=== PATIENT | female | born 1990 | race African-American/Black ===

== ENCOUNTER 2017-05-18 15:44 | Emergency (ER) | payer MEDICAID, OTHER ==
[~2017-05-18] VITALS: Ht 172.7 cm; Wt 81.6 kg
[~2017-05-18 15:44] MED LIST: ACET-704 PO; IBUP-1060 PO; NITR100C62 PO; PNV1TABL25 PO
[2017-05-18] MEDS ORDERED: IV DEXTROSE 5% - 0.9 % NACL 1,000 ML IV ONE (17:00)
--- NOTE | 2017-05-18 17:03 | PHYS DOC ---
Past Medical History Past Medical History: Asthma Alcohol Use: None Adult General Chief Complaint Chief Complaint: ASTHMA HPI HPI Patient is a 27 year old female presents to the emergency department with complaints of nausea and vomiting in the morning. She states she is approximately 12 weeks gestation. She is a 5 para 4. She denies abdominal pain, urinary symptoms, vaginal discharge or bleeding. She denies pelvic pain. Review of Systems Review of Systems Constitutional: Denies fever or chills [] Eyes: Denies change in visual acuity, redness, or eye pain [] HENT: Denies nasal congestion or sore throat [] Respiratory: Denies cough or shortness of breath [] Cardiovascular: No additional information not addressed in HPI [] GI: Denies abdominal pain, complain of nausea and vomiting in the morning. : Denies dysuria or hematuria [] Musculoskeletal: Denies back pain or joint pain [] Integument: Denies rash or skin lesions [] Neurologic: Denies headache, focal weakness or sensory changes [] Endocrine: Denies polyuria or polydipsia [] Current Medications Current Medications Current Medications Medications (Trade) Dose Ordered Sig/Kamlesh Start Time Stop Time Status Last Admin Dose Admin Dextrose/Sodium Chloride 1,000 ml @ 0 mls/hr 1X ONCE 05/18/17 17:00 05/18/17 17:02 DC 05/18/17 17:52 1,000 MLS/HR Allergies Allergies Allergies Coded Allergies Type Severity Reaction Last Updated Verified latex Allergy Intermediate Itching 07/05/15 No Physical Exam Physical Exam Constitutional: Well developed, well nourished, no acute distress, non-toxic appearance. [] HENT: Normocephalic, atraumatic, bilateral external ears normal, mucous membranes dry, no oral exudates, nose normal. [] Eyes: PERRLA, EOMI, conjunctiva normal, no discharge. [] Neck: Normal range of motion, no tenderness, supple, no stridor. [] Cardiovascular:Heart rate regular rhythm, no murmur [] Lungs & Thorax: Bilateral breath sounds clear to auscultation [] Abdomen: Bowel sounds normal, soft, no tenderness, no masses, no pulsatile masses. [] Skin: Warm, dry, no erythema, no rash. [] Back: No tenderness, no CVA tenderness. [] Extremities: No tenderness, no cyanosis, no clubbing, ROM intact, no edema. [] Neurologic: Alert and oriented X 3, normal motor function, normal sensory function, no focal deficits noted. [] Psychologic: Affect normal, judgement normal, mood normal. [] Current Patient Data Vital Signs Vital Signs Date Time Temp Pulse Resp B/P (MAP) Pulse Ox O2 Delivery O2 Flow Rate FiO2 05/18/17 16:50 99.4 94 20 121/72 (88) 99 Room Air 99.4 Lab Values Laboratory Tests Test 05/18/17 16:40 05/18/17 16:47 Urine Collection Type Unknown Urine Color Yellow Urine Clarity Clear Urine pH 6.5 Urine Specific [place] >=1.030 Urine Protein Negative mg/dL (NEG-TRACE) Urine Glucose (UA) Negative mg/dL (NEG) Urine Ketones (Stick) Negative mg/dL (NEG) Urine Blood Negative (NEG) Urine Nitrite Negative (NEG) Urine Bilirubin Negative (NEG) Urine Urobilinogen Dipstick 2.0 mg/dL (0.2 mg/dL) Urine Leukocyte Esterase Moderate (NEG) Urine RBC 0 /HPF (0-2) Urine WBC 11-20 /HPF (0-4) Urine Squamous Epithelial Cells Mod /LPF Urine Bacteria Few /HPF (0-FEW) Urine Mucus Mod /LPF POC Urine HCG, Qualitative Hcg positive (Negative) EKG EKG [] Radiology/Procedures Radiology/Procedures [] Course & Med Decision Making Course & Med Decision Making Pertinent Labs and Imaging studies reviewed. (See chart for details) Patient had no complaints of nausea and no episodes of vomiting while in the emergency department. []Patient without ketones in urine, because no masses are dry. She was given 1 L of D5NS in the emergency department and "feels better". Patient is not given antiemetics IV as these are not currently recommended in . She was discharged home with Diclegis. Patient does have urinary tract infection with 11-20 WBCs per high-power field on microscopic. She'll be discharged home with Macrobid. She is to follow-up with her primary OB in 2-3 days. Sooner proms rise. Return to the emergency department his symptoms or concerns worsening current condition. Dragon Disclaimer Dragon Disclaimer This electronic medical record was generated, in whole or in part, using a voice recognition dictation system. Departure Departure Impression: Primary Impression: Hyperemesis gravidarum Additional Impression: Urinary tract infection affecting , antepartum Disposition: 01 HOME, SELF-CARE Condition: STABLE Referrals: JENNY MENCHACA MD (PCP) Patient Instructions: Diet - Hyperemesis Gravidarum, Hyperemesis Gravidarum, Urinary Tract Infection Scripts Doxylamine/Pyridoxine Hcl (DICLEGIS DR 10-10 MG TABLET) 1 Each Tablet.dr 1 EACH PO TID Y for NAUSEA, #15 TAB.SR Prov: BORIS TOVAR APRN 05/18/17 Nitrofurantoin Monohyd/M-Cryst (MACROBID 100 MG CAPSULE) 100 Mg Capsule 1 CAP PO BID, #14 CAP Prov: BORIS TOVAR APRN 05/18/17 Problem Qualifiers BORIS TOVAR APRN May 18, 2017 17:03
[2017-05-18 17:16] LABS: BILIRUBIN,URINE NEGATIVE (NEG); GLUCOSE,URINE NEGATIVE (NEG); NITRITE,URINE NEGATIVE (NEG); PH,URINE 6.5; PROTEIN,URINE NEGATIVE (NEG-TRACE)
[2017-05-18 17:42] LABS: BACTERIA,URINE FEW /HPF (0-FEW); RBC,URINE 0 /HPF (0-2); SQUAMOUS EPITHELIAL CELL,UR MOD /LPF
[2017-05-18] MEDS ORDERED: NITR100C62 PO ×2 (17:49)
[2017-05-18] MEDS ORDERED: DOXY1TAB3 PO ×2 (17:49)
[2017-05-18 19:30] VITALS: BP 101/57
== END 2017-05-18 19:46 | disposition home or self-care (01) ==
LOC: ER 15:44
DX: O21.0 Mild hyperemesis gravidarum (principal); O23.41 Unspecified infection of urinary tract in pregnancy, first trimester; O99.511 Diseases of the respiratory system complicating pregnancy, first trimester; J45.909 Unspecified asthma, uncomplicated; Z3A.12 12 weeks gestation of pregnancy; Z91.040 Latex allergy status
CPT/HCPCS: 81001; 81025; 96360; 96361; 99285; J7042; 99284-25

== ENCOUNTER 2017-05-30 16:58 | Emergency (ER) | payer MEDICAID ==
[~2017-05-30] VITALS: Ht 172.7 cm; Wt 81.6 kg
[~2017-05-30 16:58] MED LIST changes: +DOXY1TAB3 PO
[2017-05-30] MEDS ORDERED: IV NORMAL SALINE 1000ML BAG 1,000 ML IV SCH (17:12)
[2017-05-30] MEDS ORDERED: 0.9 % SODIUM CHLORIDE 10 ML DISP.SYRIN. IV PRN (17:15)
[2017-05-30] MEDS ORDERED: ONDANSETRON PF 4 MG/2 ML VIAL. IV ONE (17:15)
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
[2017-05-30 17:35] LABS: BILIRUBIN,URINE NEGATIVE (NEG); GLUCOSE,URINE NEGATIVE (NEG); NITRITE,URINE POSITIVE (NEG); PH,URINE 6.5; PROTEIN,URINE NEGATIVE (NEG-TRACE)
[2017-05-30 17:44] LABS: BACTERIA,URINE MODERATE /HPF (0-FEW); RBC,URINE OCC /HPF (0-2); SQUAMOUS EPITHELIAL CELL,UR MOD /LPF; WBC,URINE 20-40 /HPF (0-4)
[2017-05-30 18:05] LABS: BASO % 0 % (0-3); EOS % 1 % (0-3); HEMATOCRIT 27.8 % (36.0-47.0); HEMOGLOBIN 8.4 g/dL (12.0-15.5); LYMPH # 2.2 x10^3/uL (1.0-4.8); LYMPH % 23 % (24-48); MEAN CORPUSCULAR HEMOGLOBIN 19 pg (25-35); MEAN CORPUSCULAR HGB CONC 30 g/dL (31-37); MEAN CORPUSCULAR VOLUME 64 fL (79-100); MONO % 6 % (0-9); NEUT % 70 % (31-73); PLATELET COUNT 240 x10^3/uL (140-400); RED BLOOD COUNT 4.36 x10^6/uL (3.50-5.40); RED CELL DISTRIBUTION WIDTH 18.9 % (11.5-14.5); WHITE BLOOD COUNT 9.6 x10^3/uL (4.0-11.0)
[2017-05-30 18:18] LABS: ANION GAP 12 (6-14); BLOOD UREA NITROGEN 11 mg/dL (7-20); CALCIUM 8.5 mg/dL (8.5-10.1); CARBON DIOXIDE 22 mmol/L (21-32); CHLORIDE 103 mmol/L (98-107); CREATININE 0.6 mg/dL (0.6-1.0); GLUCOSE 105 mg/dL (70-99); POTASSIUM 3.3 mmol/L (3.5-5.1); SODIUM 137 mmol/L (136-145)
[2017-05-30 18:25] LABS: ALBUMIN 2.8 g/dL (3.4-5.0); ALK PHOS 44 U/L (46-116); ALT (SGPT) 10 U/L (14-59); AST (SGOT) 11 U/L (15-37); DIRECT BILIRUBIN < 0.1 mg/dL (0.0-0.2); TOTAL BILIRUBIN 0.2 mg/dL (0.2-1.0); TOTAL PROTEIN 7.2 g/dL (6.4-8.2)
--- NOTE | 2017-05-30 19:03 | RAD ---
Early OB ultrasound History: Pelvic pain after fall Comparison: None. Technique: Transabdominal imaging was performed. Findings: Uterus measures 14.5 cm in length. Single live intrauterine is identified with gestational sac and fetus seen. Average ultrasound age is 13 weeks 0 days. Estimated delivery is December 05, 2017. Abdominal circumference is 6.61 cm corresponding to 13 weeks 2 days. [place]-rump length is 6.32 cm corresponding to 12 weeks 5 days. heart rate is 155 bpm. Placenta is posterior in implantation. No retroplacental hemorrhage is identified. Neither ovary is seen. Impression: 1. Single live intrauterine . Average ultrasound age is 13 weeks 0 days. Estimated date of delivery is December 05, 2017. Electronically signed by: Wily Scott MD (05/30/2017 7:00 PM) [facility]
[2017-05-30 19:08] LABS: ANISOCYTOSIS SLIGHT; HYPOCHROMIA MARKED; MICROCYTOSIS MARKED; PLT ESTIMATE ADEQUATE (ADEQUATE); POIKILOCYTOSIS SLIGHT; POLYCHROMASIA SLIGHT; TEAR DROP CELLS OCC
[2017-05-30 19:09] LABS: OVALOCYTES MOD
[2017-05-30 19:15] VITALS: BP 111/85
[2017-05-30] MEDS ORDERED: ACET325T9 PO (19:24)
[2017-05-30] MEDS ORDERED: ONDA4TAB10 PO (19:24)
== END 2017-05-30 19:45 | disposition home or self-care (01) ==
LOC: ER 16:58
DX: O20.0 Threatened abortion (principal); Z3A.13 13 weeks gestation of pregnancy; Z91.040 Latex allergy status; O99.511 Diseases of the respiratory system complicating pregnancy, first trimester; J45.909 Unspecified asthma, uncomplicated
CPT/HCPCS: 36415; 76801; 80048; 80076; 81001; 81025; 83690; 84702; 85025; 86900; 86901; 87086; 87491; 87591; 96361; 96374; 99285; J2405; J7030; Q0111

== ENCOUNTER 2017-06-22 14:02 | Emergency (ER) | payer MEDICAID ==
[~2017-06-22] VITALS: Ht 170.2 cm; Wt 86.2 kg
[~2017-06-22 14:02] MED LIST changes: +ACET325T9 PO; +ONDA4TAB10 PO
[2017-06-22] MEDS ORDERED: ONDANSETRON PF 4 MG/2 ML VIAL. IV ONE (14:30)
[2017-06-22] MEDS ORDERED: IV NORMAL SALINE 1000ML BAG 1,000 ML IV ONE (14:30)
--- NOTE | 2017-06-22 14:37 | PHYS DOC ---
Past Medical History Past Medical History: Asthma Past Surgical History: Other Additional Past Surgical Histo: LEFT ANKLE, L hand Alcohol Use: None Drug Use: None Adult General Chief Complaint Chief Complaint: NAUSEA/VOMITING/DIARRHA HPI HPI Patient is a 27 year old female brought in by EMS for evaluation of nausea vomiting cough congestion runny nose generalized malaise fatigue and body aches. Of pain approximate [address] Carmona. Vaginal discharge dysuria hematuria or diarrhea. She has not tried anything for her symptoms that have been going on for approximately 4 days. Not had a flu vaccine. She is in no obvious distress with normal vital signs. Review of Systems Review of Systems Constitutional: + fever, chills [] Eyes: Denies change in visual acuity, redness, or eye pain [] HENT: + nasal congestion, sore throat [] Respiratory: + cough. No shortness of breath [] Cardiovascular: No additional information not addressed in HPI [] GI: Denies abdominal pain. + nausea, vomiting. No bloody stools or diarrhea [] : Denies dysuria or hematuria [] Musculoskeletal: Denies back pain or joint pain [] Integument: Denies rash or skin lesions [] Neurologic: Denies headache, focal weakness or sensory changes [] All other systems were reviewed and found to be within normal limits, except as documented in this note. Current Medications Current Medications Current Medications Medications (Trade) Dose Ordered Sig/Kamlesh Start Time Stop Time Status Last Admin Dose Admin Ondansetron HCl (Zofran) 8 mg 1X ONCE 06/22/17 14:30 06/22/17 14:31 DC Sodium Chloride 1,000 ml @ 1,000 mls/hr 1X ONCE 06/22/17 14:30 06/22/17 15:29 Allergies Allergies Allergies Coded Allergies Type Severity Reaction Last Updated Verified latex Allergy Intermediate Itching 07/05/15 No Physical Exam Physical Exam Constitutional: Well developed, well nourished, no acute distress, non-toxic appearance. [] HENT: Normocephalic, atraumatic, bilateral external ears normal, oropharynx moist, no oral exudates, nose with boggy turbinates. [] Eyes: PERRLA, EOMI, conjunctiva normal, no discharge. [] Neck: Normal range of motion, no tenderness, supple, no stridor. [] Cardiovascular:Heart rate regular rhythm, no murmur [] Lungs & Thorax: Bilateral breath sounds clear to auscultation [] Abdomen: Bowel sounds normal, soft, no tenderness, no masses, no pulsatile masses. [] Skin: Warm, dry, no erythema, no rash. [] Back: No tenderness, no CVA tenderness. [] Extremities: No tenderness, no cyanosis, no clubbing, ROM intact, no edema. [] Neurologic: Alert and oriented X 3, normal motor function, normal sensory function, no focal deficits noted. [] Current Patient Data Vital Signs Vital Signs Date Time Temp Pulse Resp B/P (MAP) Pulse Ox O2 Delivery O2 Flow Rate FiO2 06/22/17 14:13 98.7 110 16 142/70 (94) 99 Room Air 98.7 EKG EKG [] Radiology/Procedures Radiology/Procedures EXAM: Chest, single view. HISTORY: Cough. COMPARISON: None. FINDINGS: A frontal view of the chest is obtained. There is no infiltrate, effusion or pneumothorax. The heart is normal in size. IMPRESSION: No acute pulmonary finding. DICTATED and SIGNED BY: LARON ANAYA MD DATE: 06/22/17 1450 Impressions: BSUS SHOWED IUP WITH + FHT AT 152 AND NORMAL MOVEMENT AND FLUID Course & Med Decision Making Course & Med Decision Making Labs and imaging pending at this time so I will transfer care to Dr. Zheng at 1500 and have him disposition the patient appropriately. Likely viral syndrome with normal vital signs that she will likely be able to go home. Dragon Disclaimer Dragon Disclaimer This electronic medical record was generated, in whole or in part, using a voice recognition dictation system. Departure Departure Impression: Primary Impression: Viral syndrome Additional Impression: Nausea & vomiting Referrals: NO PCP (PCP) Problem Qualifiers MARK PISANO DO Jun 22, 2017 14:37
--- NOTE | 2017-06-22 14:55 | RAD ---
EXAM: Chest, single view. HISTORY: Cough. COMPARISON: None. FINDINGS: A frontal view of the chest is obtained. There is no infiltrate, effusion or pneumothorax. The heart is normal in size. IMPRESSION: No acute pulmonary finding.
[2017-06-22 15:04] LABS: BILIRUBIN,URINE SMALL (NEG); GLUCOSE,URINE NEGATIVE (NEG); NITRITE,URINE NEGATIVE (NEG); PH,URINE 6.5; PROTEIN,URINE NEGATIVE (NEG-TRACE)
[2017-06-22 15:06] LABS: BACTERIA,URINE MODERATE /HPF (0-FEW); RBC,URINE 0 /HPF (0-2); SQUAMOUS EPITHELIAL CELL,UR MOD /LPF; WBC,URINE >40 /HPF (0-4)
[2017-06-22 15:07] LABS: BARBITURATES NEG (NEG); BENZODIAZEPINES NEG (NEG); CANNABINOIDS NEG (NEG); COCAINE NEG (NEG); METHADONE NEG (NEG); OPIATES NEG (NEG); PHENCYCLIDINE NEG (NEG)
[2017-06-22 15:09] LABS: OBC FLU VALID
[2017-06-22 15:14] LABS: BASO # 0.1 x10^3/uL (0.0-0.2); BASO % 1 % (0-3); EOS % 1 % (0-3); HEMATOCRIT 30.8 % (36.0-47.0); HEMOGLOBIN 9.2 g/dL (12.0-15.5); LYMPH # 1.3 x10^3/uL (1.0-4.8); LYMPH % 10 % (24-48); MEAN CORPUSCULAR HEMOGLOBIN 19 pg (25-35); MEAN CORPUSCULAR HGB CONC 30 g/dL (31-37); MEAN CORPUSCULAR VOLUME 64 fL (79-100); MONO % 5 % (0-9); NEUT % 83 % (31-73); PLATELET COUNT 208 x10^3/uL (140-400); RED BLOOD COUNT 4.82 x10^6/uL (3.50-5.40); RED CELL DISTRIBUTION WIDTH 19.7 % (11.5-14.5); WHITE BLOOD COUNT 13.5 x10^3/uL (4.0-11.0)
[2017-06-22 15:27] LABS: CALCIUM 9.4 mg/dL (8.5-10.1); CREATININE 0.9 mg/dL (0.6-1.0); GFR 90.2; POTASSIUM 3.3 mmol/L (3.5-5.1)
[2017-06-22 15:32] LABS: ALBUMIN 3.1 g/dL (3.4-5.0); ALBUMIN/GLOBULIN RATIO 0.6 (1.0-1.7); MAGNESIUM 1.8 mg/dL (1.8-2.4); TOTAL BILIRUBIN 0.3 mg/dL (0.2-1.0)
[2017-06-22 15:45] LABS: HYPOCHROMIA MARKED; PLT ESTIMATE ADEQUATE (ADEQUATE); POIKILOCYTOSIS SLIGHT
[2017-06-22 15:46] LABS: ANISOCYTOSIS SLIGHT; MICROCYTOSIS MARKED; OVALOCYTES FEW; POLYCHROMASIA SLIGHT; TEAR DROP CELLS OCC
[2017-06-22] MEDS ORDERED: IV DEXTROSE 5% - 0.9 % NACL 500 ML IV ONE (16:00)
[2017-06-22 16:53] VITALS: BP 122/66
[2017-06-23 08:16] LABS: NEGATIVE OBC STREP NEG; POSITIVE OBC STREP POS
== END 2017-06-22 17:26 | disposition home or self-care (01) ==
LOC: ER 14:02
DX: O98.512 Other viral diseases complicating pregnancy, second trimester (principal); B34.9 Viral infection, unspecified; O99.512 Diseases of the respiratory system complicating pregnancy, second trimester; J45.909 Unspecified asthma, uncomplicated; Z91.040 Latex allergy status; Z3A.17 17 weeks gestation of pregnancy
CPT/HCPCS: 36415; 71010; 80053; 80307; 81001; 83690; 83735; 85025; 87070; 87086; 87804; 87880; 96365; 96367; 96375; 99285; G0480; J0690; J2405; J7030; J7042; G0479

== ENCOUNTER 2017-07-03 02:29 | Emergency (ER) | payer MEDICAID ==
[2017-07-03 02:55] LABS: BILIRUBIN,URINE NEGATIVE (NEG); GLUCOSE,URINE NEGATIVE (NEG); NITRITE,URINE NEGATIVE (NEG); PH,URINE 6.5; PROTEIN,URINE NEGATIVE (NEG-TRACE)
--- NOTE | 2017-07-03 03:03 | PHYS DOC ---
Past Medical History Past Medical History: Asthma Past Surgical History: Other Additional Past Surgical Histo: LEFT ANKLE, L hand Additional Information: non smoker Alcohol Use: None Drug Use: None Adult General Chief Complaint Chief Complaint: FLANK PAIN HPI HPI Patient is a 27 year old female who presents with cough. SHe is 19 weeks (EDC 11/30/16) who has been [place] [facility] [place] [facility] [place] and has her next appt 07/12/17. SHe has been coughing and has had sinus congestion for > 1 week. No fever. SHe is coughing "until I throw up." No diarrhea. No abdominal pain; no leak of fluid; no vaginal bleeding. Denies any fever. NO Recent travel. No chest pain or difficulty breathing. Review of Systems Review of Systems Constitutional: Denies fever or chills Eyes: Denies change in visual acuity, redness, or eye pain HENT: POS nasal congestion and sore throat Respiratory: POS cough but no shortness of breath Cardiovascular: No chest pain GI: Denies abdominal pain, nausea, vomiting, bloody stools or diarrhea; . : Denies dysuria or hematuria Musculoskeletal: Denies back pain or joint pain Integument: Denies rash or skin lesions Neurologic: Denies headache, focal weakness or sensory changes Endocrine: Denies polyuria or polydipsia All other systems were reviewed and found to be within normal limits, except as documented in this note. Allergies Allergies Allergies Coded Allergies Type Severity Reaction Last Updated Verified latex Allergy Intermediate Itching 07/05/15 No Physical Exam Physical Exam Constitutional: Well developed, well nourished, no acute distress, non-toxic appearance. HENT: Normocephalic, atraumatic, bilateral external ears normal, oropharynx moist, no oral exudates, nose normal. Eyes: PERRLA, EOMI, conjunctiva normal, no discharge. Neck: Normal range of motion, no tenderness, supple, no stridor. Cardiovascular:Heart rate regular rhythm, no murmur Lungs & Thorax: Bilateral breath sounds clear to auscultation Abdomen: Bowel sounds normal, soft, no tenderness, no masses, no pulsatile masses. Gravid. Skin: Warm, dry, no erythema, no rash. Back: No tenderness, no CVA tenderness. Extremities: No tenderness, no cyanosis, no clubbing, ROM intact, no edema. Neurologic: Alert and oriented X 3, normal motor function, normal sensory function, no focal deficits noted. Psychologic: Affect normal, judgement normal, mood normal. Current Patient Data Lab Values Laboratory Tests Test 07/03/17 02:40 Urine Collection Type Unknown Urine Color Yellow Urine Clarity Clear Urine pH 6.5 Urine Specific [place] 1.020 Urine Protein Negative mg/dL (NEG-TRACE) Urine Glucose (UA) Negative mg/dL (NEG) Urine Ketones (Stick) Negative mg/dL (NEG) Urine Blood Negative (NEG) Urine Nitrite Negative (NEG) Urine Bilirubin Negative (NEG) Urine Urobilinogen Dipstick 1.0 mg/dL (0.2 mg/dL) Urine Leukocyte Esterase Small (NEG) Urine RBC 0 /HPF (0-2) Urine WBC 5-10 /HPF (0-4) Urine Squamous Epithelial Cells Mod /LPF Urine Bacteria Few /HPF (0-FEW) Urine Mucus Mod /LPF Course & Med Decision Making Course & Med Decision Making Evaluated patient. heart tones obtained at 157. She is having post tussive emesis. No GI involvement. UA contaminated. She is to follow up with OB as scheduled. She has a viral URI and does not meet criteria for antibiotic use. I have spoken with the patient and/or caregivers. I have explained the patient' s condition, diagnosis and treatment plan based on the information available to me at this time. I have answered the patient's and/or caregiver's questions and addressed any concerns. The patient and/or caregivers have as good an understanding of the patient's diagnosis, condition and treatment plan as can be expected at this point. The patient's condition is stable and appropriate for discharge from the emergency department. The patient will pursue further outpatient evaluation with the primary care physician or other designated or consulting physician as outlined in the discharge instructions. The patient and/or caregivers are agreeable to this plan of care and follow-up instructions have been explained in detail. The patient and/or caregivers have received these instructions in written format and have expressed an understanding of the discharge instructions. The patient and/or caregivers are aware that any significant change in condition or worsening of symptoms should prompt an immediate return to this or the closest emergency department or a call to 911. Jermaine Disclaimer Dragon Disclaimer This electronic medical record was generated, in whole or in part, using a voice recognition dictation system. Departure Departure Impression: Primary Impression: Viral upper respiratory illness Additional Impressions: 19 weeks gestation of Cough Disposition: HOME, SELF-CARE Condition: IMPROVED Referrals: NO PCP (PCP) Patient Instructions: Cough, Adult, Upper Respiratory Infection, Adult Additional Instructions: YOU NEED TO SEE YOUR OB AT [facility] DIRECTED. IF YOU ARE HAVING INCREASED SYMPTOMS YOU NEED TO SEE THEM JENNY. YOUR HEART TONES WERE NORMAL HERE. Problem Qualifiers LILIANA OWUSU MD Jul 03, 2017 03:03
[2017-07-03 03:09] LABS: BACTERIA,URINE FEW /HPF (0-FEW); RBC,URINE 0 /HPF (0-2); SQUAMOUS EPITHELIAL CELL,UR MOD /LPF
[2017-07-03 03:25] VITALS: BP 106/63
== END 2017-07-03 03:25 | disposition home or self-care (01) ==
LOC: ER 02:29
DX: O99.512 Diseases of the respiratory system complicating pregnancy, second trimester (principal); J06.9 Acute upper respiratory infection, unspecified; B97.89 Other viral agents as the cause of diseases classified elsewhere; J45.909 Unspecified asthma, uncomplicated; Z3A.19 19 weeks gestation of pregnancy; Z91.040 Latex allergy status
CPT/HCPCS: 81001; 87086; 99284

== ENCOUNTER 2017-07-25 19:14 | Observation (INO) | payer MEDICAID ==
[2017-07-25] MEDS ORDERED: IV RINGERS,LACTATED 1000ML 1,000 ML IV SCH (19:24)
[2017-07-25 19:43] LABS: BILIRUBIN,URINE NEGATIVE (NEG); GLUCOSE,URINE NEGATIVE (NEG); NITRITE,URINE NEGATIVE (NEG); PROTEIN,URINE NEGATIVE (NEG-TRACE)
[2017-07-25 19:45] LABS: BARBITURATES NEG (NEG); BENZODIAZEPINES NEG (NEG); CANNABINOIDS NEG (NEG); COCAINE NEG (NEG); METHADONE NEG (NEG); OPIATES NEG (NEG); PHENCYCLIDINE NEG (NEG)
[2017-07-25 19:49] LABS: BACTERIA,URINE FEW /HPF (0-FEW); RBC,URINE 0 /HPF (0-2); SQUAMOUS EPITHELIAL CELL,UR MANY /LPF
== END 2017-07-25 20:47 | disposition home or self-care (01) ==
LOC: 3 SO LND 19:14
PROVIDERS: ADMIT Specialist; ATTEND Specialist
DX: O26.892 Other specified pregnancy related conditions, second trimester (principal); R51 Headache; R10.30 Lower abdominal pain, unspecified; R35.0 Frequency of micturition; Z3A.21 21 weeks gestation of pregnancy
CPT/HCPCS: 80307; 81001; 87086; G0378; G0379; G0479

== ENCOUNTER 2017-09-18 19:06 | Observation (INO) | payer MEDICAID ==
[2017-09-18] MEDS ORDERED: IV RINGERS,LACTATED 1000ML 1,000 ML IV ×2 (19:14)
[2017-09-18 20:15] LABS: BILIRUBIN,URINE NEGATIVE (NEG); CLARITY,URINE CLEAR; COLOR,URINE YELLOW; GLUCOSE,URINE NEGATIVE (NEG); NITRITE,URINE NEGATIVE (NEG); PH,URINE 6.5; PROTEIN,URINE NEGATIVE (NEG-TRACE)
[2017-09-18 20:22] LABS: BARBITURATES POS (NEG); BENZODIAZEPINES NEG (NEG); CANNABINOIDS NEG (NEG); COCAINE NEG (NEG); METHADONE NEG (NEG); OPIATES NEG (NEG); PHENCYCLIDINE NEG (NEG)
[2017-09-18 20:23] LABS: AMPHETAMINE/METHAMPHETAMINE NEG (NEG); ETHANOL, URINE NEG (NEG)
[2017-09-18 20:37] LABS: BACTERIA,URINE MANY /HPF (0-FEW); HYALINE CASTS, URINE OCCASIONAL /HPF; RBC,URINE 0 /HPF (0-2); SQUAMOUS EPITHELIAL CELL,UR MANY /LPF
[2017-09-18] MEDS: IV DEXTROSE 5%-LACT RINGERS 1,000 ML IV ×2 (21:10)
[2017-09-18] MEDS: hydrOXYzine PAMOATE 25 MG CAPSULE PO ×2 (23:14)
== END 2017-09-18 23:25 | disposition home or self-care (01) ==
LOC: 3 SO LND 19:06
DX: O26.893 Other specified pregnancy related conditions, third trimester (principal); R10.9 Unspecified abdominal pain; G43.909 Migraine, unspecified, not intractable, without status migrainosus; Z3A.29 29 weeks gestation of pregnancy
CPT/HCPCS: 80307; 81001; 87086; 96360; G0378; G0379; Q0177

== ENCOUNTER 2017-09-26 20:10 | Observation (INO) | payer MEDICAID ==
[2017-09-26 20:45] LABS: BILIRUBIN,URINE NEGATIVE (NEG); CLARITY,URINE CLEAR; COLOR,URINE YELLOW; GLUCOSE,URINE NEGATIVE (NEG); NITRITE,URINE NEGATIVE (NEG); PROTEIN,URINE NEGATIVE (NEG-TRACE)
[2017-09-26 20:49] LABS: BARBITURATES POS (NEG); BENZODIAZEPINES NEG (NEG); CANNABINOIDS NEG (NEG); COCAINE NEG (NEG); METHADONE NEG (NEG); OPIATES NEG (NEG); PHENCYCLIDINE NEG (NEG)
[2017-09-26 20:51] LABS: AMPHETAMINE/METHAMPHETAMINE NEG (NEG); ETHANOL, URINE NEG (NEG)
[2017-09-26 21:05] LABS: BACTERIA,URINE MODERATE /HPF (0-FEW); RBC,URINE 0 /HPF (0-2); SQUAMOUS EPITHELIAL CELL,UR OCC /LPF; WBC,URINE OCC /HPF (0-4)
== END 2017-09-26 22:00 | disposition home or self-care (01) ==
LOC: 3 SO LND 20:10
DX: O26.893 Other specified pregnancy related conditions, third trimester (principal); R10.9 Unspecified abdominal pain; Z3A.30 30 weeks gestation of pregnancy
CPT/HCPCS: 59025; 80307; 81001; 87086; G0378; G0379

== ENCOUNTER 2017-10-20 22:53 | Observation (INO) | payer MEDICAID ==
[2017-10-21] MEDS ORDERED: ACETAMINOPHEN 325 MG TABLET. PO
[2017-10-21] MEDS: IV RINGERS,LACTATED 1000ML 1,000 ML IV ×3 (00:05→05:29)
[2017-10-21] MEDS: hydrOXYzine PAMOATE 25 MG CAPSULE PO (01:20)
[2017-10-21] MEDS: NIFEdipine 10 MG CAPSULE PO (04:25)
[2017-10-21] MEDS: 0.9 % SODIUM CHLORIDE 10 ML DISP.SYRIN. IV (09:34)
== END 2017-10-21 12:38 | disposition home or self-care (01) ==
LOC: 3 SO LND 22:53
DX: O36.8130 Decreased fetal movements, third trimester, not applicable or unspecified (principal); Z3A.34 34 weeks gestation of pregnancy
CPT/HCPCS: 59025; 76819; 96360; 96361; G0378; G0379; J7120; Q0177

== ENCOUNTER 2017-11-15 04:10 | Inpatient (IN) | payer OTHER, MEDICAID ==
[2017-11-15 04:32] LABS: BILIRUBIN,URINE NEGATIVE (NEG); CLARITY,URINE CLOUDY; COLOR,URINE YELLOW; GLUCOSE,URINE NEGATIVE (NEG); NITRITE,URINE NEGATIVE (NEG); PROTEIN,URINE NEGATIVE (NEG-TRACE)
[2017-11-15 04:37] LABS: BACTERIA,URINE MANY /HPF (0-FEW); RBC,URINE 0 /HPF (0-2); SQUAMOUS EPITHELIAL CELL,UR FEW /LPF
[2017-11-15 04:39] LABS: BARBITURATES NEG (NEG); BENZODIAZEPINES NEG (NEG); CANNABINOIDS NEG (NEG); COCAINE NEG (NEG); METHADONE NEG (NEG); OPIATES NEG (NEG); PHENCYCLIDINE NEG (NEG)
[2017-11-15 04:40] LABS: AMPHETAMINE/METHAMPHETAMINE NEG (NEG); ETHANOL, URINE NEG (NEG)
[2017-11-15] MEDS: IV RINGERS,LACTATED 1000ML 1,000 ML IV ×3 (05:14→20:50)
[2017-11-15] MEDS ORDERED: L&D EPIDURAL CASSETTE 100 ML EP (05:30)
[2017-11-15] MEDS: ACETAMINOPHEN 500 MG TABLET PO (08:45)
[2017-11-15] MEDS ORDERED: L&D EPIDURAL SYRINGE 50 ML EP (10:00)
[2017-11-15] MEDS ORDERED: IV RINGERS,LACTATED 1000ML 1,000 ML IV ×2 (13:43→20:39)
[2017-11-15] MEDS ORDERED: TERBUTALINE 1 MG/ML VIAL. SQ (13:45)
[2017-11-15] MEDS ORDERED: OXYTOCIN 30 UNIT/500 ML PREMIX 500 ML IV (13:45)
[2017-11-15] MEDS ORDERED: MAG HYDROX/ALUMINUM HYD/SIMETH 30 ML ORAL.SUSP PO (13:45)
[2017-11-15] MEDS ORDERED: CITRIC ACID/SODIUM CITRATE 30 ML SOLUTION. PO (13:45)
[2017-11-15] MEDS ORDERED: LIDOCAINE 1% PF 30 ML VIAL. INJ (13:45)
[2017-11-15] MEDS ORDERED: BUTORPHANOL 2 MG/ML VIAL. IV ×2 (13:45)
[2017-11-15] MEDS ORDERED: fentaNYL PF VIAL 100 MCG/2 ML VIAL IV (13:45)
[2017-11-15] MEDS ORDERED: 0.9 % SODIUM CHLORIDE 10 ML DISP.SYRIN. IV (13:45)
[2017-11-15] MEDS ORDERED: AMPICILLIN SODIUM 2 GM in IV NORMAL SALINE 100ML 100 ML IV (13:45)
[2017-11-15] MEDS ORDERED: AMPICILLIN SODIUM 1 GM in IV NORMAL SALINE 50ML 50 ML IV (14:00)
[2017-11-15 15:15] LABS: HEMATOCRIT 25.5 % (36.0-47.0); HEMOGLOBIN 7.3 g/dL (12.0-15.5); MEAN CORPUSCULAR HEMOGLOBIN 17 pg (25-35); MEAN CORPUSCULAR HGB CONC 29 g/dL (31-37); MEAN CORPUSCULAR VOLUME 60 fL (79-100); PLATELET COUNT 170 x10^3/uL (140-400); RED BLOOD COUNT 4.21 x10^6/uL (3.50-5.40); RED CELL DISTRIBUTION WIDTH 20.2 % (11.5-14.5); WHITE BLOOD COUNT 10.9 x10^3/uL (4.0-11.0)
[2017-11-15] MEDS: AMPICILLIN SODIUM IV Push 2 GM VIAL. IVP (15:48)
[2017-11-15] MEDS: OXYTOCIN 30 UNIT/500 ML PREMIX 500 ML IV (16:08)
[2017-11-15] MEDS: AMPICILLIN SODIUM IV Push 1 GM VIAL. IVP (19:55)
[2017-11-15] MEDS ORDERED: ONDANSETRON PF 4 MG/2 ML VIAL. IV (20:00)
[2017-11-15] MEDS: miSOPROStol 200MCG TAB 200 MCG TABLET PR (20:50)
[2017-11-15] MEDS: METHYLERGONOVINE MALEATE 0.2 MG TABLET PO (23:17)
[2017-11-15] MEDS: IBUPROFEN 800 MG TABLET. PO (23:17)
[2017-11-16] MEDS ORDERED: MMR per PROTOCOL. MC (08:00)
[2017-11-16] MEDS ORDERED: ZOLPIDEM 5 MG TABLET. PO (08:00)
[2017-11-16] MEDS ORDERED: diphenhydrAMINE HCL 25 MG CAPSULE PO (08:00)
[2017-11-16] MEDS ORDERED: 0.9 % SODIUM CHLORIDE 10 ML DISP.SYRIN. IV (08:00)
[2017-11-16] MEDS ORDERED: BENZOCAINE 20% TOPICAL AEROSOL SPRAY 57GM CAN. TP (08:00)
[2017-11-16] MEDS ORDERED: ACETAMINOPHEN 325 MG TABLET. PO (08:00)
[2017-11-16] MEDS ORDERED: oxyCODONE/APAP 5/325 1 TAB TABLET PO (08:00)
[2017-11-16] MEDS ORDERED: HYDROCORTISONE 1% TOPICAL OINTMENT 30GM TUBE. TP (08:00)
[2017-11-16] MEDS ORDERED: PHENYLEPH/MINERAL OIL/PETROLAT RECTAL OINTMENT 28GM TUBE. RC (08:00)
[2017-11-16] MEDS ORDERED: SIMETHICONE 80 MG TAB.CHEW PO (08:00)
[2017-11-16] MEDS ORDERED: MAG HYDROX/ALUMINUM HYD/SIMETH 30 ML ORAL.SUSP PO (08:00)
[2017-11-16] MEDS ORDERED: OXYTOCIN 30 UNIT/500 ML PREMIX 500 ML IV (08:00)
[2017-11-16] MEDS ORDERED: MAGNESIUM HYDROXIDE 2,400 MG/30 ML ORAL.SUSP. PO (08:00)
[2017-11-16] MEDS: SENNOSIDES/DOCUSATE 8.6/50MG TABLET. PO ×2 (09:00→23:29)
[2017-11-16] MEDS: METHYLERGONOVINE MALEATE 0.2 MG TABLET PO ×3 (09:21→23:28)
[2017-11-16] MEDS: FERROUS SULFATE 325 MG TABLET. PO ×2 (09:22→17:25)
[2017-11-16] MEDS: DOCUSATE SODIUM 100 MG CAPSULE. PO ×2 (09:22→17:24)
[2017-11-16] MEDS: oxyCODONE/APAP 5/325 1 TAB TABLET PO (09:23)
[2017-11-16 10:05] LABS: HEMATOCRIT 22.6 % (36.0-47.0); MEAN CORPUSCULAR HEMOGLOBIN 17 pg (25-35); MEAN CORPUSCULAR HGB CONC 29 g/dL (31-37); MEAN CORPUSCULAR VOLUME 61 fL (79-100); PLATELET COUNT 138 x10^3/uL (140-400); RED BLOOD COUNT 3.73 x10^6/uL (3.50-5.40); RED CELL DISTRIBUTION WIDTH 20.3 % (11.5-14.5); WHITE BLOOD COUNT 15.8 x10^3/uL (4.0-11.0)
[2017-11-16 10:09] LABS: HEMOGLOBIN 6.5 g/dL (12.0-15.5)
[2017-11-16] MEDS: IBUPROFEN 800 MG TABLET. PO ×3 (14:00→23:29)
[2017-11-17] MEDS: IBUPROFEN 800 MG TABLET. PO (06:22)
[2017-11-17 08:39] LABS: HEMATOCRIT 24.2 % (36.0-47.0)
[2017-11-17 09:00] LABS: HEMOGLOBIN 6.9 g/dL (12.0-15.5)
[2017-11-17] MEDS: DOCUSATE SODIUM 100 MG CAPSULE. PO (09:56)
[2017-11-17] MEDS: FERROUS SULFATE 325 MG TABLET. PO (09:56)
[2017-11-17] MEDS: medroxyPROGESTERone IM 150 MG/ML VIAL. IM (12:17)
[2017-11-17 23:07] LABS: RPR Non Reactive (Non Reactive)
== END 2017-11-17 16:00 | disposition home or self-care (01) | DRG 775 ==
LOC: 3 SO LND 04:10 → 3 NORTH 23:45
PROC: 10E0XZZ Delivery of Products of Conception, External Approach (ICD-10-PCS; principal; 2017-11-15)
PROC: 10907ZC Drainage of Amniotic Fluid, Therapeutic from Products of Conception, Via Natural or Artificial Opening (ICD-10-PCS; 2017-11-15)
DX: O99.824 Streptococcus B carrier state complicating childbirth (principal); J45.909 Unspecified asthma, uncomplicated; O99.52 Diseases of the respiratory system complicating childbirth; Z37.0 Single live birth; Z3A.38 38 weeks gestation of pregnancy; Z91.040 Latex allergy status
CPT/HCPCS: 36415; 80307; 81001; 85014; 85018; 85027; 86593; 86850; 86900; 86901; 87086; G0378; J0290; J2590; J7120

== ENCOUNTER → 2019-12-04 | Outpatient (CLI) | payer OTHER ==
[2017-11-17 15:30] VITALS: BP 122/72
[~2019-12-04] MED LIST changes: +FERR325T14 PO; +HYDR-3164 PO; +NAPR-585 PO
[2019-12-04 13:15] LABS: HEMATOCRIT 23.8 % (36.0-47.0); HEMOGLOBIN 7.2 g/dL (12.0-15.5); RED BLOOD COUNT 4.31 x10^6/uL (3.50-5.40); RED CELL DISTRIBUTION WIDTH 19.9 % (11.5-14.5); WHITE BLOOD COUNT 10.2 x10^3/uL (4.0-11.0)
[2019-12-04 13:50] LABS: FREE T4 0.92 ng/dL (0.76-1.46); THYROID STIM HORMONE (TSH) 1.25 uIU/mL (0.358-3.74)
[2019-12-05 17:09] LABS: RUBELLA IGG ANTIBODY 3.05 index (Immune >0.99)
== END | disposition home or self-care (01) ==
LOC: LAB 12:38
PROVIDERS: ATTEND Obstetrics & Gynecology
DX: Z34.92 Encounter for supervision of normal pregnancy, unspecified, second trimester (principal); Z3A.00 Weeks of gestation of pregnancy not specified
CPT/HCPCS: 36415; 81511; 84439; 84443; 85027; 85660; 86703; 86762; 86787; 86803; 86850; 86900; 86901; 87340

== ENCOUNTER 2019-12-19 16:03 | Emergency (ER) | payer OTHER ==
[~2019-12-19] VITALS: Ht 172.7 cm; Wt 96.0 kg
[2019-12-19 16:05] VITALS: BP 124/70
[2019-12-19] MEDS ORDERED: diphenhydrAMINE HCL 25 MG CAPSULE PO ONE (16:15)
[2019-12-19] MEDS ORDERED: METOCLOPRAMIDE 10 MG TABLET. PO ONE (16:15)
[2019-12-19 16:59] LABS: BILIRUBIN,URINE NEGATIVE (NEG); CLARITY,URINE CLOUDY; COLOR,URINE YELLOW; NITRITE,URINE NEGATIVE (NEG); PH,URINE 6.5 (<5.0-8.0); PROTEIN,URINE NEGATIVE (NEG-TRACE)
[2019-12-19 17:08] LABS: SQUAMOUS EPITHELIAL CELL,UR MANY /LPF
[2019-12-19 17:09] LABS: BACTERIA,URINE MANY /HPF (0-FEW); RBC,URINE OCC /HPF (0-2); WBC,URINE >40 /HPF (0-4)
[2019-12-19 17:14] LABS: TRICHOMONAS,URINE PRESENT
[2019-12-19] MEDS ORDERED: cefTRIAXone IM 1 GM VIAL IM ONE (17:45)
[2019-12-19] MEDS ORDERED: AMOX1TAB61 PO (17:49)
[2019-12-19] MEDS ORDERED: METO10TA81 PO (17:49)
--- NOTE | 2019-12-19 17:49 | PHYS DOC ---
Past Medical History Past Medical History: Asthma Past Surgical History: Other Additional Past Surgical Histo: LEFT ANKLE, L hand Smoking Status: Never Smoker Alcohol Use: None Drug Use: None General Adult EDM: Chief Complaint: ABDOMINAL PAIN IN HPI: HPI: Patient is a 29-year-old female who is approximately 18 weeks presents with what she describes as a migraine headache this been ongoing for a couple of days. She has some associated nausea photophobia and phonophobia. She also has some low abdominal discomfort and dysuria. She denies any fever chills or sweats. She denies any back or flank pain. She denies any vaginal bleeding or discharge. [] Review of Systems: Review of Systems: Constitutional: Denies fever or chills. [] Eyes: Denies change in visual acuity. [] HENT: Denies nasal congestion or sore throat. [] Respiratory: Denies cough or shortness of breath. [] Cardiovascular: Denies chest pain or edema. [] GI: Denies abdominal pain, nausea, vomiting, bloody stools or diarrhea. [] : Per HPI [] Musculoskeletal: Denies back pain or joint pain. [] Integument: Denies rash. [] Neurologic: Reports anxiety [] Endocrine: Denies polyuria or polydipsia. [] Lymphatic: Denies swollen glands. [] Psychiatric: Denies depression or anxiety. [] Heart Score: Risk Factors: Risk Factors: DM, Current or recent (<one month) smoker, HTN, HLP, family history of CAD, obesity. Risk Scores: Score 0 - 3: 2.5% MACE over next 6 weeks - Discharge Home Score 4 - 6: 20.3% MACE over next 6 weeks - Admit for Clinical Observation Score 7 - 10: 72.7% MACE over next 6 weeks - Early Invasive Strategies Current Medications: Current Medications Medications (Trade) Dose Ordered Sig/Kamlesh Start Time Stop Time Status Last Admin Dose Admin Diphenhydramine HCl (Benadryl) 25 mg 1X ONCE 12/19/19 16:15 12/19/19 16:20 DC 12/19/19 16:15 25 MG Metoclopramide HCl (Reglan) 10 mg 1X ONCE 12/19/19 16:15 12/19/19 16:20 DC 12/19/19 16:15 10 MG Allergies: Allergies: Allergies Coded Allergies Type Severity Reaction Last Updated Verified latex Allergy Intermediate Swelling, of face from latex mask 11/16/17 Yes Physical Exam: PE: Constitutional: Well developed, well nourished, no acute distress, non-toxic appearance. [] HENT: Normocephalic, atraumatic, bilateral external ears normal, oropharynx moist, no oral exudates, nose normal. [] Eyes: PERRLA, EOMI, conjunctiva normal, no discharge. [] Neck: Normal range of motion, no tenderness, supple, no stridor. [] Cardiovascular:Heart rate regular rhythm, no murmur [] Lungs & Thorax: Bilateral breath sounds clear to auscultation [] Abdomen: Bowel sounds normal, soft, no tenderness, no masses, no pulsatile masses. [] Skin: Warm, dry, no erythema, no rash. [] Back: No tenderness, no CVA tenderness. [] Extremities: No tenderness, no cyanosis, no clubbing, ROM intact, no edema. [] Neurologic: Alert and oriented X 3, normal motor function, normal sensory function, no focal deficits noted. [] Psychologic: Affect normal, judgement normal, mood normal. [] Current Patient Data: Labs: Laboratory Tests Test 12/19/19 14:40 Urine Collection Type Unknown Urine Color Yellow Urine Clarity Cloudy Urine pH 6.5 (<5.0-8.0) Urine Specific [place] 1.010 (1.000-1.030) Urine Protein Negative mg/dL (NEG-TRACE) Urine Glucose (UA) Negative mg/dL (NEG) Urine Ketones (Stick) Negative mg/dL (NEG) Urine Blood Negative (NEG) Urine Nitrite Negative (NEG) Urine Bilirubin Negative (NEG) Urine Urobilinogen Dipstick 1.0 mg/dL (0.2 mg/dL) Urine Leukocyte Esterase Large (NEG) Urine RBC Occ /HPF (0-2) Urine WBC >40 /HPF (0-4) Urine Squamous Epithelial Cells Many /LPF Urine Bacteria Many /HPF (0-FEW) Urine Trichomonas Present Vital Signs: Vital Signs Date Time Temp Pulse Resp B/P (MAP) Pulse Ox O2 Delivery O2 Flow Rate FiO2 12/19/19 16:05 99.0 107 16 124/70 (88) 98 Room Air 99.0 EKG: EKG: [] Radiology/Procedures: Radiology/Procedures: [] Course & Med Decision Making: Course & Med Decision Making Pertinent Labs and Imaging studies reviewed. (See chart for details) [] heart tones were documented in the 140s Dragon Disclaimer: Jermaine Disclaimer: This electronic medical record was generated, in whole or in part, using a voice recognition dictation system. Departure Departure Impression: Primary Impression: Urinary tract infection affecting Additional Impression: Migraine headache Qualified Codes: G43.909 - Migraine, unspecified, not intractable, without status migrainosus Disposition: HOME, SELF-CARE Condition: IMPROVED Referrals: MIRZA DORSEY MD (PCP) Patient Instructions: Migraine Headache, - Urinary Tract Infection Scripts Metoclopramide Hcl (REGLAN) 10 Mg Tablet 1 TAB PO Q8HRS PRN for migraine, #30 TAB Prov: DAVE BIRMINGHAM DO 12/19/19 Amoxicillin/Potassium Clav (AUGMENTIN 875-125 TABLET) 1 Each Tablet 1 TAB PO BID for UTI, #14 TAB Prov: DAVE BIRMINGHAM DO 12/19/19 DAVE BIRMINGHAM DO December 19, 2019 17:49
== END 2019-12-19 18:00 | disposition home or self-care (01) ==
LOC: ER 16:03
DX: O23.42 Unspecified infection of urinary tract in pregnancy, second trimester (principal); G43.909 Migraine, unspecified, not intractable, without status migrainosus; O99.512 Diseases of the respiratory system complicating pregnancy, second trimester; J45.909 Unspecified asthma, uncomplicated; Z3A.18 18 weeks gestation of pregnancy; Z91.040 Latex allergy status
CPT/HCPCS: 81001; 87086; 96372; 99283; J0696; J8597; Q0163

== ENCOUNTER → 2020-01-29 | Outpatient (CLI) | payer OTHER ==
[~2020-01-29] MED LIST changes: +AMOX1TAB61 PO; +METO10TA81 PO
[2020-01-29 11:35] LABS: HEMATOCRIT 23.9 % (36.0-47.0); RED BLOOD COUNT 4.32 x10^6/uL (3.50-5.40); RED CELL DISTRIBUTION WIDTH 21.8 % (11.5-14.5); WHITE BLOOD COUNT 9.2 x10^3/uL (4.0-11.0)
== END | disposition home or self-care (01) ==
LOC: LAB 09:56
PROVIDERS: ATTEND Obstetrics & Gynecology
DX: Z34.92 Encounter for supervision of normal pregnancy, unspecified, second trimester (principal)
CPT/HCPCS: 82950; 83020; 85027; 86592